=== PATIENT | male | born 1970 | race Caucasian/White ===

== ENCOUNTER 2017-09-17 03:11 | Emergency (ER) | payer OTHER ==
[~2017-09-17] VITALS: Ht 170.2 cm; Wt 72.6 kg
[~2017-09-17 03:11] MED LIST: BACLOFEN10 MG PO; CARVEDILOL3.125 M1 GT; CLINDAMYCIN HC300 MG GT; CLONIDINE HCL0.1 MG GT; COLACE100 MG GT; DIAZEPAM5 MG GT; DOXYCYCLINE HY100 MG GT; DOXYCYCLINE MO100 MG PO; FLUDROCORTISON0.1 MG GT; IRON; KEPPRA500 MG GT; LAC GT; LEVAQUIN750 MG GT; LIPI10 PO; POTASSIUM CHLO10 ME2 GT; RANITIDINE HCL150 M1 GT; SENNA8.6 M2 GT
[2017-09-17 03:27] VITALS: Ht 170.2 cm; Wt 72.6 kg
[2017-09-17 05:43] LABS: BASOPHIL % 0.3 % (0-2); RED CELL DISTRIBUTION WIDTH 13.8 % (11.5-14.5)
[2017-09-17] MEDS ORDERED: CATAPRES0.1 MG PO (05:44)
[2017-09-17] MEDS ORDERED: NORCO1 TA2 PO (05:44)
[2017-09-17] MEDS ORDERED: FLUDROCORTISON0.1 MG PO (05:45)
[2017-09-17] MEDS ORDERED: RANITIDINE HCL150 M1 PO (05:45)
[2017-09-17] MEDS ORDERED: LIPI10 PO (05:46)
[2017-09-17] MEDS ORDERED: CARVEDILOL3.125 M1 GT (05:47)
[2017-09-17] MEDS ORDERED: ZOLPIDEM TART GT (05:47)
[2017-09-17] MEDS ORDERED: SENNA8.6 MG GT (05:47)
[2017-09-17] MEDS ORDERED: LIPI10 GT (05:48)
[2017-09-17] MEDS ORDERED: KEPPRA500 MG (05:48)
[2017-09-17] MEDS ORDERED: FLUDROCORTISON0.1 MG GT (05:48)
[2017-09-17 05:49] LABS: CALCIUM 9.2 mg/dL (8.5-10.1); CARBON DIOXIDE 33.2 mmol/L (21-32); CHLORIDE SERUM 104 mmol/L (98-107); CREATININE SERUM 0.7 mg/dL (0.7-1.3); GFR1 > 60 mL/min; GLUCOSE SERUM 95 mg/dL (74-106); POTASSIUM SERUM 4.3 mmol/L (3.5-5.1); SODIUM SERUM 144 mmol/L (136-145)
[2017-09-17] MEDS ORDERED: RANITIDINE HYD150 M2 GT (05:49)
[2017-09-17] MEDS ORDERED: CATAPRES0.1 MG GT (05:50)
[2017-09-17] MEDS ORDERED: APAP/HYDROCODON1 T11 GT (05:50)
[2017-09-17] MEDS ORDERED: KEPPRA500 MG GT (05:53)
[2017-09-17 05:54] LABS: ALBUMIN 3.5 g/dL (3.4-5.0); ALKALINE PHOSPHATASE 138 U/L (46-116); ALT/SGPT 115 U/L (16-63); AST/SGOT 69 U/L (15-37); BILIRUBIN TOTAL 0.43 mg/dL (0.20-1.00); LIPASE 132 IU/L (73-393)
[2017-09-17 05:57] LABS: PLATELET COUNT 127 x10^3mcL (130-400)
[2017-09-17 08:43] VITALS: BP 127/80
== END 2017-09-17 08:43 | disposition home or self-care (01) ==
LOC: ED 03:11
PROVIDERS: Emergency Medicine
DX: J11.1 Influenza due to unidentified influenza virus with other respiratory manifestations (principal); I10 Essential (primary) hypertension
CPT/HCPCS: 87804; J1170; J1956; J7030

== ENCOUNTER 2020-06-10 15:41 | Inpatient (IN) | payer OTHER, SELFPAY ==
[~2020-06-10] VITALS: Ht 170.2 cm; Wt 71.3 kg
[~2020-06-10 15:41] MED LIST changes: +APAP/HYDROCODON1 T11 GT; +CATAPRES0.1 MG GT; +CATAPRES0.1 MG PO; +FLUDROCORTISON0.1 MG PO; +KEPPRA500 MG; +LIPI10 GT; +NORCO1 TA2 PO; +RANITIDINE HCL150 M1 PO; +RANITIDINE HYD150 M2 GT; +SENNA8.6 MG GT; +ZOLPIDEM TART GT
[2020-06-10 17:14] LABS: BASOPHIL % 0.1 % (0-2); RED CELL DISTRIBUTION WIDTH 13.7 % (11.5-14.5)
[2020-06-10 17:15] LABS: ALKALINE PHOSPHATASE 106 U/L (46-116); ALT/SGPT 36 U/L (16-63); AST/SGOT 34 U/L (15-37); BILIRUBIN TOTAL 0.6 mg/dL (0.20-1.00); CALCIUM 8.4 mg/dL (8.5-10.1); CHLORIDE SERUM 104 mmol/L (98-107); CREATININE SERUM 0.9 mg/dL (0.7-1.3); GFR1 > 60 mL/min; GLUCOSE SERUM 67 mg/dL (74-106); POTASSIUM SERUM 4.2 mmol/L (3.5-5.1); SODIUM SERUM 142 mmol/L (136-145); TOTAL PROTEIN, SERUM 6.2 g/dL (6.4-8.2)
[2020-06-10 17:16] LABS: PLATELET COUNT 96 x10^3mcL (130-400)
[2020-06-10 17:17] LABS: ALBUMIN 2.7 g/dL (3.4-5.0)
[2020-06-10 17:19] LABS: CARBON DIOXIDE 41.1 mmol/L (21-32)
[2020-06-10] MEDS ORDERED: KEPPRA100 MG/M1 PO (18:10)
[2020-06-10] MEDS ORDERED: ENULOSE10 GM/151 PO (18:10)
[2020-06-10] MEDS ORDERED: NORCO1 TA2 PO (18:13)
[2020-06-10] MEDS ORDERED: ATIVAN1 MG PO (18:13)
[2020-06-10] MEDS ORDERED: CVS SENNA PLUS1 EACH PO (18:13)
[2020-06-10] MEDS ORDERED: ASPIRIN ADULT L81 M5 GT (18:14)
[2020-06-10] MEDS ORDERED: FLUDROCORTISON0.1 MG PO (18:15)
[2020-06-10] MEDS ORDERED: AMBIEN10 MG PO (18:15)
[2020-06-10] MEDS ORDERED: DOCU LIQUI50 MG/5 ML PO (18:18)
[2020-06-10 20:53] LABS: CHOLESTEROL/HDL RATIO 2.1
[2020-06-10 21:27] VITALS: BP 189/122
[2020-06-10 21:49] VITALS: Ht 170.2 cm; Wt 71.3 kg
[2020-06-10 23:15] VITALS: BP 90/60
[2020-06-11 06:03] VITALS: BP 94/54
[2020-06-11 06:36] LABS: BASOPHIL % 0.2 % (0-2); RED CELL DISTRIBUTION WIDTH 13.6 % (11.5-14.5)
[2020-06-11 06:53] LABS: PLATELET COUNT 111 x10^3mcL (130-400)
[2020-06-11 07:25] LABS: ALBUMIN 2.7 g/dL (3.4-5.0); ALKALINE PHOSPHATASE 120 U/L (46-116); ALT/SGPT 32 U/L (16-63); AST/SGOT 37 U/L (15-37); BILIRUBIN TOTAL 0.63 mg/dL (0.20-1.00); CALCIUM 8.4 mg/dL (8.5-10.1); CARBON DIOXIDE 35.7 mmol/L (21-32); CHLORIDE SERUM 103 mmol/L (98-107); CREATININE SERUM 1.2 mg/dL (0.7-1.3); GFR1 > 60 mL/min; GLUCOSE SERUM 134 mg/dL (74-106); MAGNESIUM 2.4 mg/dL (1.8-2.4); POTASSIUM SERUM 4.7 mmol/L (3.5-5.1); SODIUM SERUM 142 mmol/L (136-145); TOTAL PROTEIN, SERUM 6.4 g/dL (6.4-8.2)
[2020-06-11 09:24] LABS: microscopic required? NO
[2020-06-11 09:28] VITALS: BP 118/77
[2020-06-11 10:05] LABS: UA SPECIFIC GRAVITY 1.015 (1.005-1.035); urine erythrocyte NEGATIVE (NEGATIVE)
[2020-06-11 10:14] LABS: AMPHETAMINE QUAL UR NONE DETECTED (See below)
[2020-06-11 12:33] VITALS: BP 152/99
[2020-06-11 13:54] LABS: C REACTIVE PROTEIN 5.7 mg/dL (<=0.9)
[2020-06-11 17:00] VITALS: BP 141/89
[2020-06-11 19:50] VITALS: BP 166/109
[2020-06-11 23:09] VITALS: BP 111/69
[2020-06-12 05:40] VITALS: BP 131/80
[2020-06-12 06:37] LABS: BASOPHIL % 0.3 % (0-2); RED CELL DISTRIBUTION WIDTH 13.8 % (11.5-14.5)
[2020-06-12 06:56] LABS: PLATELET COUNT 108 x10^3mcL (130-400)
[2020-06-12 07:15] LABS: CALCIUM 8.7 mg/dL (8.5-10.1); CARBON DIOXIDE 39.3 mmol/L (21-32); CHLORIDE SERUM 108 mmol/L (98-107); CREATININE SERUM 0.8 mg/dL (0.7-1.3); GFR1 > 60 mL/min; GLUCOSE SERUM 116 mg/dL (74-106); MAGNESIUM 2.1 mg/dL (1.8-2.4); PHOSPHOROUS 2.7 mg/dL (2.5-4.9); POTASSIUM SERUM 3.9 mmol/L (3.5-5.1); SODIUM SERUM 148 mmol/L (136-145)
[2020-06-12 09:22] VITALS: BP 129/84
[2020-06-12] MEDS ORDERED: AUGMENTIN125 MG/5 M GT (12:11)
[2020-06-12 13:09] VITALS: BP 111/69
[2020-06-12 14:14] VITALS: BP 111/69
== END 2020-06-12 15:15 | disposition home or self-care (01) | DRG 137 ==
LOC: ED 15:41 → DU 18:32 → EDBEDREQ 18:35 → EDBEDREQTM 18:35 → DU 20:51
PROVIDERS: Emergency Medicine; ADMIT Family Medicine; ATTEND Family Medicine
DX: J69.0 Pneumonitis due to inhalation of food and vomit (principal); J96.00 Acute respiratory failure, unspecified whether with hypoxia or hypercapnia; E43 Unspecified severe protein-calorie malnutrition; Z93.0 Tracheostomy status; R13.10 Dysphagia, unspecified; R56.9 Unspecified convulsions; I10 Essential (primary) hypertension; D64.9 Anemia, unspecified; E16.2 Hypoglycemia, unspecified; Z20.828 Contact with and (suspected) exposure to other viral communicable diseases; Z79.82 Long term (current) use of aspirin; Z79.899 Other long term (current) drug therapy; Z79.891 Long term (current) use of opiate analgesic; Z79.01 Long term (current) use of anticoagulants; Z82.49 Family history of ischemic heart disease and other diseases of the circulatory system
CPT/HCPCS: 36600; 82962; 83880; 85378; 87804; C9113; G0378; J0456; J0696; J2270; J2543; J3490; J7030; J7060; Q0092; Q9967; U0003-CS